=== PATIENT | female | born 1970 | race Caucasian/White ===

== ENCOUNTER 2017-10-27 08:26 | Emergency (ER) | payer BC, OTHER ==
[~2017-10-27] VITALS: Ht 165.1 cm; Wt 120.0 kg
[2017-10-27] MEDS ORDERED: SODIUM CHLORIDE 0.9% 1,000 ML IV ONE (09:13)
[2017-10-27] MEDS ORDERED: DIAZEPAM 5 MG/ML 2ML CPJ IV ONE (09:15)
[2017-10-27 09:23] VITALS: BP 131/42
== END 2017-10-27 10:47 | disposition home or self-care (01) ==
LOC: ER 10:22
DX: G43.809 Other migraine, not intractable, without status migrainosus (principal); I10 Essential (primary) hypertension; E78.00 Pure hypercholesterolemia, unspecified; Z88.8 Allergy status to other drugs, medicaments and biological substances; Z88.6 Allergy status to analgesic agent
CPT/HCPCS: 96361; 96374; 99284; J7030